=== PATIENT | female | born 1990 | race African-American/Black ===

== ENCOUNTER 2016-05-16 03:24 | Emergency (ER) | payer BC ==
[~2016-05-16] VITALS: Ht 162.6 cm; Wt 102.1 kg
[2016-05-16] MEDS ORDERED: PEPCID20 MG PO (04:47)
[2016-05-16] MEDS ORDERED: PREDNISONE 20 M20 MG PO (04:47)
[2016-05-16 05:26] VITALS: BP 103/64
== END 2016-05-16 05:28 | disposition home or self-care (01) ==
LOC: ER 03:24
DX: J06.9 Acute upper respiratory infection, unspecified (principal); B34.9 Viral infection, unspecified; L50.9 Urticaria, unspecified; F10.99 Alcohol use, unspecified with unspecified alcohol-induced disorder; Z88.8 Allergy status to other drugs, medicaments and biological substances

== ENCOUNTER 2016-08-11 17:25 | Emergency (ER) | payer OTHER ==
[~2016-08-11] VITALS: Ht 160 cm; Wt 102.1 kg
[~2016-08-11 17:25] MED LIST: PEPCID20 MG PO; PREDNISONE 20 M20 MG PO
[2016-08-11 18:30] LABS: ABSOLUTE NEUTROPHILS 4.3 thou/uL (1.4-8.2); BASOPHILS 0.6 % (0.0-2.0); EOSINOPHILS 1.3 % (0.0-3.0); HEMATOCRIT 37.5 % (37.0-47.0); HEMOGLOBIN 12.4 gm/dL (12.0-15.0); MONOCYTES 6.3 % (1.0-8.0); PLATELET COUNT 370 thou/uL (150-400); POLYS 51.8 % (36.0-66.0); RBC 4.57 mil/uL (4.20-5.00); RDW 13.3 % (10.5-14.5); WBC 8.4 thou/uL (4.0-11.0)
[2016-08-11 18:32] LABS: MANUAL DIFF NO
[2016-08-11 18:40] LABS: CALCIUM 8.5 mg/dL (8.5-10.1); CREATININE 0.8 mg/dL (0.6-1.0); POTASSIUM 3.9 mmol/L (3.5-5.1)
[2016-08-11 18:42] LABS: URINE BILIRUBIN NEGATIVE (Negative); URINE BLOOD NEGATIVE (Negative); URINE COLOR YELLOW; URINE GLUCOSE-RANDOM* NEGATIVE (Negative); URINE KETONES NEGATIVE (Negative); URINE LEUKOCYTES-REFLEX NEGATIVE (Negative); URINE PROTEIN (DIPSTICK) NEGATIVE (Negative); URINE SPECIFIC GRAVITY 1.025 (1.003-1.035); URINE UROBILINOGEN 0.2 E.U./dl (0.2-1.0)
[2016-08-11 18:45] LABS: ALBUMIN 3.3 g/dL (3.4-5.0); TOTAL BILIRUBIN 0.3 mg/dL (<0.1-1.0); TOTAL PROTEIN 7.2 g/dL (6.4-8.2)
[2016-08-11] MEDS ORDERED: PHENERGAN 25 MG25 M1 PO (20:01)
[2016-08-11] MEDS ORDERED: PROMS25 WY RECTAL (20:06)
[2016-08-11 20:14] VITALS: BP 112/66
== END 2016-08-11 20:15 | disposition home or self-care (01) ==
LOC: ER 17:25
PROVIDERS: Physician Assistant
DX: R11.2 Nausea with vomiting, unspecified (principal); R19.7 Diarrhea, unspecified; L29.8 Other pruritus; Z91.041 Radiographic dye allergy status; F10.99 Alcohol use, unspecified with unspecified alcohol-induced disorder

== ENCOUNTER 2017-05-01 12:38 | Emergency (ER) | payer OTHER ==
[~2017-05-01] VITALS: Ht 157.5 cm; Wt 92.1 kg
[~2017-05-01 12:38] MED LIST changes: +PHENERGAN 25 MG25 M1 PO; +PROMS25 WY RECTAL
== END 2017-05-01 15:00 | disposition home or self-care (01) ==
LOC: ER 12:38
DX: O26.891 Other specified pregnancy related conditions, first trimester (principal); Z20.2 Contact with and (suspected) exposure to infections with a predominantly sexual mode of transmission; Z91.041 Radiographic dye allergy status

== ENCOUNTER 2018-12-31 13:46 | Emergency (ER) | payer BC ==
[~2018-12-31] VITALS: Ht 160 cm; Wt 98.0 kg
[2018-12-31 14:22] LABS: URINE BILIRUBIN NEGATIVE (Negative); URINE BLOOD NEGATIVE (Negative); URINE CLARITY CLEAR; URINE COLOR YELLOW; URINE GLUCOSE-RANDOM* NEGATIVE (Negative); URINE KETONES NEGATIVE (Negative); URINE LEUKOCYTES-REFLEX TRACE (Negative); URINE NITRITE-REFLEX NEGATIVE (Negative); URINE PROTEIN (DIPSTICK) NEGATIVE (Negative); URINE SPECIFIC GRAVITY 1.025 (1.005-1.035); URINE UROBILINOGEN 0.2 E.U./dl (0.2-1.0)
[2018-12-31] MEDS ORDERED: FLAGYL500 M1 PO (14:40)
[2018-12-31 14:45] VITALS: BP 114/73
== END 2018-12-31 14:48 | disposition home or self-care (01) ==
LOC: ER 13:46
PROVIDERS: Physician Assistant
DX: A59.01 Trichomonal vulvovaginitis (principal); Z91.041 Radiographic dye allergy status

== ENCOUNTER 2019-04-25 17:34 | Emergency (ER) | payer OTHER ==
[~2019-04-25] VITALS: Ht 160 cm; Wt 99.8 kg
[~2019-04-25 17:34] MED LIST changes: +FLAGYL500 M1 PO
[2019-04-25 18:17] LABS: URINE BILIRUBIN NEGATIVE (Negative); URINE BLOOD NEGATIVE (Negative); URINE CLARITY CLEAR; URINE COLOR YELLOW; URINE GLUCOSE-RANDOM* NEGATIVE (Negative); URINE KETONES NEGATIVE (Negative); URINE LEUKOCYTES-REFLEX NEGATIVE (Negative); URINE NITRITE-REFLEX NEGATIVE (Negative); URINE PROTEIN (DIPSTICK) NEGATIVE (Negative); URINE SPECIFIC GRAVITY >= 1.030 (1.005-1.035); URINE UROBILINOGEN 0.2 E.U./dl (0.2-1.0)
[2019-04-25 19:10] LABS: BACTERIA 1-9 Few /HPF (None Seen); CASTS None Seen /LPF (None Seen); CRYSTALS None Seen /LPF (None Seen); SQUAMOUS 4-10 Moderate /LPF (0-3); URINE RBC None Seen /HPF (0-2); URINE WBC 6-15 Few /HPF (0-5)
[2019-04-25] MEDS ORDERED: KEFLEX500 M1 PO (19:25)
[2019-04-25 19:59] VITALS: BP 120/72
== END 2019-04-25 20:00 | disposition home or self-care (01) ==
LOC: ER 17:34
PROVIDERS: Nurse Practitioner Family
DX: N39.0 Urinary tract infection, site not specified (principal); Z88.6 Allergy status to analgesic agent; Z91.041 Radiographic dye allergy status

== ENCOUNTER 2019-04-27 13:50 | Emergency (ER) | payer OTHER ==
[~2019-04-27] VITALS: Ht 160 cm; Wt 99.8 kg
[~2019-04-27 13:50] MED LIST changes: +KEFLEX500 M1 PO
[2019-04-27 15:25] VITALS: BP 124/86
== END 2019-04-27 15:23 | disposition home or self-care (01) ==
LOC: ER 13:50
DX: A54.03 Gonococcal cervicitis, unspecified (principal); Z88.6 Allergy status to analgesic agent; Z91.041 Radiographic dye allergy status